=== PATIENT | male | born 1945 | race Caucasian/White ===

== ENCOUNTER 2020-10-01 07:51 | Day surgery (SDC) | payer MEDICARE ==
[2020-09-27 11:12] VITALS: BMI 31.1
[~2020-10-01 07:51] MED LIST: LACTATED RINGERS 1,000 ML IV SCH; LIDOCAINE 1% (10MG/ML) FOR IV START INTRADERMA PRN
[2020-10-01 08:09] VITALS: TEMP 97.8
[2020-10-01] MEDS ORDERED: LACTATED RINGERS 1,000 ML IV ONE (08:09)
[2020-10-01] MEDS ORDERED: fentaNYL (PF) 50 MCG/ML 2 ML AMP ONE (08:39)
[2020-10-01] MEDS ORDERED: MIDAZOLAM 2 MG/2 ML VIAL ONE (08:39)
[2020-10-01] MEDS ORDERED: PROPOFOL 10 MG/ML 20 ML VIAL IV ONE (08:39)
[2020-10-01 09:23] VITALS: RESP 16
--- NOTE | 2020-10-01 09:24 | P.PCN ---
Date of Procedure: 10/01/20 Description of Procedure: BRIEF HISTORY: Patient is a 75-year-old male presenting for outpatient colonoscopy prescription malignant neoplasm of the colon. No change in bowel habits, blood per rectum or family history of colon cancer. Last colonoscopy 10 years ago. PROCEDURE PERFORMED: Colonoscopy with polypectomy and biopsy. PREOPERATIVE DIAGNOSIS: Screening for malignant neoplasm of the colon, last colonoscopy 10 years ago. ESTIMATED BLOOD LOSS: Minimal. IV sedation per Anesthesia. PROCEDURE: After informed consent was obtained, the patient, was brought into the endoscopy unit. IV sedation was administered by Anesthesia under continuous monitoring. Digital rectal examination was normal. Initially the Olympus CF-190 flexible video colonoscope was then inserted in the rectum, gradually advanced into the cecum without any difficulty. Careful examination was performed as the scope was gradually being withdrawn. Ileocecal valve and the appendiceal orifice were visualized and appeared normal. Prep was excellent. Mucosa of the cecum, ascending colon, transverse colon, descending colon, sigmoid colon, and rectum appeared normal. Diminutive polyps measuring 1-2 mm in size removed from the cecum, splenic flexure and sigmoid colon using cold forcep polypectomy. There is a flat 2.5 cm tubulovillous-appearing polyp in the rectum located approximately 5 cm from the anal verge which was biopsied. Retroflexion was performed in the rectum and no lesions were seen, mild low-grade internal hemorrhoids and. The patient tolerated the procedure well. IMPRESSION: 3 diminutive polyps removed with cold forcep polypectomy from the cecum, splenic flexure and sigmoid. Large flat tubulovillous-appearing rectal polyp biopsied with cold forceps. Internal hemorrhoids. RECOMMENDATIONS: Findings of this examination were discussed with the patient in the family. Await pathology from biopsies and polypectomy. Patient will likely need referral to tertiary center for removal of the large rectal tubulovillous follow-up, pending pathology from biopsies.
[2020-10-01 09:33] VITALS: BP 129/86; PULSE 66
== END 2020-10-01 10:02 | disposition home or self-care (01) ==
LOC: ORWHC2ENDO 07:51
PROVIDERS: ATTEND Internal Medicine
DX: Z12.11 Encounter for screening for malignant neoplasm of colon (principal); D12.0 Benign neoplasm of cecum; D12.3 Benign neoplasm of transverse colon; D12.5 Benign neoplasm of sigmoid colon; D12.8 Benign neoplasm of rectum; K64.8 Other hemorrhoids; I10 Essential (primary) hypertension; M10.9 Gout, unspecified; Z79.899 Other long term (current) drug therapy; Z87.891 Personal history of nicotine dependence; Z98.890 Other specified postprocedural states
CPT/HCPCS: 45380; 88305; J2250; J3010; J2704; 45385

== ENCOUNTER → 2021-07-18 | Outpatient (CLI) | payer MEDICARE ==
--- NOTE | 2021-07-18 14:35 | US ---
EXAMINATION TYPE: US scrotum with doppler. Grayscale and color Doppler Duplex imaging performed of [place] scrotum. DATE OF EXAM: 07/18/2021 COMPARISON: NONE CLINICAL HISTORY: N50.89 - Other specified disorders of the male gen. Swollen left testicle for month s, no pain, no injury, no surgical history EXAM MEASUREMENTS: TESTICLES: Right Testicle: 4.8 x 3.0 x 2.3 cm Left Testicle: 4.7 x 2.9 x 2.7 cm *rete testis noticed bilaterally EPIDIDYMIS HEAD: Right Epididymis: 0.9 cm Left Epididymis: 0.9 cm, operable 2.0cm epididymal cyst noted incidentally Doppler performed to assess for testicular vascularity; bilateral color flow and vascular waveforms a re seen. Presence of hydroceles: yes, large left side, mild lateral right Presence of varicoceles: no Testicular echotexture is homogenous and symmetric. IMPRESSION: Hydroceles left greater than right.
== END | disposition home or self-care (01) ==
LOC: RADUSWWP 13:24
PROVIDERS: ATTEND Family Medicine
DX: N43.2 Other hydrocele (principal)
CPT/HCPCS: 76870; 93975

== ENCOUNTER 2023-02-10 07:33 | Emergency (ER) | payer MEDICARE ==
[2023-02-10 07:39] VITALS: TEMP 97.2
[2023-02-10] MEDS ORDERED: SODIUM CHLORIDE 0.9% 500 ML 500 ML IV STA (07:51)
[2023-02-10] MEDS ORDERED: ONDANSETRON 4 MG/2 ML VIAL IVP STA (07:51)
[2023-02-10] MEDS ORDERED: MORPHINE SULFATE 4 MG/ML SYRINGE IVP STA (07:52)
--- NOTE | 2023-02-10 07:53 | ED ---
Abdominal Pain HPI - General Chief Complaint: Abdominal Pain Stated Complaint: Pain in left side of abd Time Seen by Provider: 02/10/23 07:35 Source: patient Mode of arrival: ambulatory Limitations: no limitations - History of Present Illness Initial Comments: 77-year-old male with past medical history of hypertension and presents emergency department reporting sudden onset of the left lower quadrant abdominal pain. States that he woke up around 5:15 this morning. He was getting dressed when he had sudden onset of left-sided sharp, lower abdominal pain. No history of similar in the past. Denies any urinary complaints to include dysuria, hematuria or difficulty voiding. Denies any changes in his bowel habits to include diarrhea, constipation, black or bloody stools. No testicular pain or discharge. No testicular swelling. No history of similar pain in the past. Did not take anything for symptoms before coming into the emergency department. States the pain is severe enough that it is making him dizzy. He denies any fevers. No abdominal surgeries. No other alleviating, precipitating or modifying factors - Related Data Home Medications Medication Instructions Recorded Confirmed Losartan Potassium 50 mg PO QAM 09/27/20 09/27/20 allopurinoL [Zyloprim] 100 mg PO DAILY 09/27/20 09/27/20 diphenhydrAMINE [Benadryl] 25 mg PO QID PRN 09/27/20 09/27/20 Previous Rx's Medication Instructions Recorded Acetaminophen [Acetaminophen 8 hr] 650 mg PO Q8H #30 tab 02/10/23 Amoxic-Pot Clav 875-125Mg 1 tab PO Q12HR 1 Days #20 tab 02/10/23 [Augmentin 875-125] Ibuprofen [Motrin] 600 mg PO Q8HR PRN #30 tab 02/10/23 Allergies Allergy/AdvReac Type Severity Reaction Status Date / Time No Known Allergies Allergy Verified 02/10/23 07:37 Review of Systems ROS Statement: Those systems with pertinent positive or pertinent negative responses have been documented in the HPI. ROS Other: All systems not noted in ROS Statement are negative. Past Medical History Past Medical History: Hypertension, Skin Disorder Additional Past Medical History / Comment(s): gout, psoriasis History of Any Multi-Drug Resistant Organisms: None Reported Past Surgical History: Joint Replacement, Orthopedic Surgery Additional Past Surgical History / Comment(s): sugery on two fingers left hand,lt hip replaced Past Anesthesia/Blood Transfusion Reactions: No Reported Reaction Additional Past Anesthesia/Blood Transfusion Reaction / Comment(s): no hx blood transfusion Past Psychological History: No Psychological Hx Reported Smoking Status: Never smoker - Past Family History Mother Family Medical History: Cancer Father Family Medical History: Deep Vein Thrombosis (DVT) General Exam Limitations: no limitations General appearance: alert, in no apparent distress Head exam: Present: atraumatic, normocephalic, normal inspection Eye exam: Present: normal appearance, PERRL, EOMI. Absent: scleral icterus, conjunctival injection, periorbital swelling ENT exam: Present: normal exam, mucous membranes moist Neck exam: Present: normal inspection. Absent: tenderness, meningismus, lymphadenopathy Respiratory exam: Present: normal lung sounds bilaterally. Absent: respiratory distress, wheezes, rales, rhonchi, stridor Cardiovascular Exam: Present: regular rate, normal rhythm, normal heart sounds. Absent: systolic murmur, diastolic murmur, rubs, gallop, clicks GI/Abdominal exam: Present: soft, tenderness (Left lower quadrant), normal bowel sounds. Absent: distended, guarding, rebound, rigid Extremities exam: Present: normal inspection, full ROM, normal capillary refill. Absent: tenderness, pedal edema, joint swelling, calf tenderness Back exam: Present: normal inspection Neurological exam: Present: alert, oriented X3, CN II-XII intact Psychiatric exam: Present: normal affect, normal mood Skin exam: Present: warm, dry, intact, normal color. Absent: rash Course Vital Signs 02/10/23 02/10/23 02/10/23 07:37 08:00 11:08 Temperature 97.2 F L Pulse Rate 72 72 88 Respiratory 16 17 18 Rate Blood Pressure 123/74 128/84 107/58 O2 Sat by Pulse 94 L 96 98 Oximetry Medical Decision Making - Medical Decision Making Was pt. sent in by a medical professional or institution (, PA, POWER ENGINEER, urgent care, hospital, or long term...) When possible be specific @ -No Did you speak to anyone other than the patient for history (EMS, parent, family, police, friend...)? What history was obtained from this source @ -No Did you review nursing and triage notes (agree or disagree)? Why? @ -I reviewed and agree with nursing and triage notes Were old charts reviewed (outside hosp., previous admission, EMS record, old EKG, old radiological studies, urgent care reports/EKG's, long term records)? Report findings @ -No old charts were reviewed Differential Diagnosis (chest pain, altered mental status, abdominal pain women, abdominal pain men, vaginal bleeding, weakness, fever, dyspnea, syncope, headache, dizziness, GI bleed, back pain, seizure, CVA, palpatations, mental health, musculoskeletal)? @ -diverticulitis, colon mass, bowel obstruction, pneumoperitoneum EKG interpreted by me (3pts min.). @ -yes X-rays interpreted by me (1pt min.). @ -None done CT interpreted by me (1pt min.). @ -yes U/S interpreted by me (1pt. min.). @ -None done What testing was considered but not performed or refused? (CT, X-rays, U/S, labs)? Why? @ -None What meds were considered but not given or refused? Why? @ -None Did you discuss the management of the patient with other professionals (professionals i.e. , PA, POWER ENGINEER, lab, RT, psych nurse, socially responsible investment adviser, watch train inspector, teacher, assurance officer, case supervisor)? Give summary @ -No Was smoking cessation discussed for >3mins.? @ -No Was critical care preformed (if so, how long)? @ -No Were there social determinants of health that impacted care today? How? (Homelessness, low income, unemployed, alcoholism, drug addiction, transportation, low edu. Level, literacy, decrease access to med. care, halfway, rehab)? @ -No Was there de-escalation of care discussed even if they declined (Discuss DNR or withdrawal of care, Hospice)? DNR status @ -No What co-morbidities impacted this encounter? (DM, HTN, Smoking, COPD, CAD, Cancer, CVA, ARF, Chemo, Hep., AIDS, mental health diagnosis, sleep apnea, mor bid obesity)? @ -None Was patient admitted / discharged? Hospital course, mention meds given and route, prescriptions, significant lab abnormalities, going to OR and other pertinent info. @ -Arrival patient was placed in room 17. Thorough history and physical exam is performed. IV access established laboratory studies were conducted. Lactic acid is 2.1. CT abdomen and pelvis demonstrates mild uncomplicated diverticulitis. Patient given dose of Rocephin and Flagyl. Pain is controlled at this time. Will be discharged home on Augmentin. Instructed to take the medications as directed and follow-up with his doctor. He has any pain immediately Motrin and Tylenol. If his pain is uncontrolled, he needs to return to the emergency room. Patient was agreeable to this and was discharged home in stable condition Undiagnosed new problem with uncertain prognosis? @ -No Drug Therapy requiring intensive monitoring for toxicity (Heparin, Nitro, Insulin, Cardizem)? @ -No Were any procedures done? @ -No Diagnosis/symptom? @ -acute lle abd pain, acute diverticulitis Acute, or Chronic, or Acute on Chronic? @ -acute Uncomplicated (without systemic symptoms) or Complicated (systemic symptoms)? @ -complicated Side effects of treatment? @ -No Exacerbation, Progression, or Severe Exacerbation? @ -No Poses a threat to life or bodily function? How? (Chest pain, [place], GA, pneumonia, PE, COPD, DKA, ARF, appy, cholecystitis, CVA, Diverticulitis, Homicidal, Suicidal, threat to staff... and all critical care pts) @ -No - Lab Data Result diagrams: 02/10/23 07:53 02/10/23 07:53 Lab Results 02/10/23 02/10/23 02/10/23 Range/Units 07:53 07:53 07:53 WBC 6.1 (3.8-10.6) k/uL RBC 5.13 (4.30-5.90) m/uL Hgb 16.2 (13.0-17.5) gm/dL Hct 47.9 (39.0-53.0) % MCV 93.3 (80.0-100.0) fL MCH 31.5 (25.0-35.0) pg MCHC 33.8 (31.0-37.0) g/dL RDW 13.2 (11.5-15.5) % Plt Count 187 (150-450) k/uL MPV 7.6 Neutrophils % (Manual) 87 % Band Neuts % (Manual) 5 % Lymphocytes % (Manual) 4 % Monocytes % (Manual) 3 % Eosinophils % (Manual) 1 % Neutrophils # (Manual) 5.60 (1.3-7.7) k/uL Lymphocytes # (Manual) 0.24 L (1.0-4.8) k/uL Monocytes # (Manual) 0.18 (0-1.0) k/uL Eosinophils # (Manual) 0.06 (0-0.7) k/uL Nucleated RBCs 0 (0-0) /100 WBC Manual Slide Review Performed PT 11.1 (9.0-12.0) sec INR 1.1 (<1.2) APTT 21.7 L (22.0-30.0) sec Sodium 139 (137-145) mmol/L Potassium 5.1 (3.5-5.1) mmol/L Chloride 106 (98-107) mmol/L Carbon Dioxide 26 (22-30) mmol/L Anion Gap 7 mmol/L BUN 21 H (9-20) mg/dL Creatinine 1.13 (0.66-1.25) mg/dL Est GFR (CKD-EPI)AfAm 73 (>60 ml/min/1.73 sqM) Est GFR (CKD-EPI)NonAf 63 (>60 ml/min/1.73 sqM) Glucose 143 H (74-99) mg/dL Lactic Ac Sepsis Rflx Plasma Lactic Acid Eulalio (0.7-2.0) mmol/L Calcium 8.9 (8.4-10.2) mg/dL Total Bilirubin 1.1 (0.2-1.3) mg/dL AST 29 (17-59) U/L ALT 28 (4-49) U/L Alkaline Phosphatase 94 (38-126) U/L Total Protein 7.3 (6.3-8.2) g/dL Albumin 4.0 (3.5-5.0) g/dL Lipase 51 (23-300) U/L 02/10/23 02/10/23 Range/Units 07:53 08:34 WBC (3.8-10.6) k/uL RBC (4.30-5.90) m/uL Hgb (13.0-17.5) gm/dL Hct (39.0-53.0) % MCV (80.0-100.0) fL MCH (25.0-35.0) pg MCHC (31.0-37.0) g/dL RDW (11.5-15.5) % Plt Count (150-450) k/uL MPV Neutrophils % (Manual) % Band Neuts % (Manual) % Lymphocytes % (Manual) % Monocytes % (Manual) % Eosinophils % (Manual) % Neutrophils # (Manual) (1.3-7.7) k/uL Lymphocytes # (Manual) (1.0-4.8) k/uL Monocytes # (Manual) (0-1.0) k/uL Eosinophils # (Manual) (0-0.7) k/uL Nucleated RBCs (0-0) /100 WBC Manual Slide Review PT (9.0-12.0) sec INR (<1.2) APTT (22.0-30.0) sec Sodium (137-145) mmol/L Potassium (3.5-5.1) mmol/L Chloride (98-107) mmol/L Carbon Dioxide (22-30) mmol/L Anion Gap mmol/L BUN (9-20) mg/dL Creatinine (0.66-1.25) mg/dL Est GFR (CKD-EPI)AfAm (>60 ml/min/1.73 sqM) Est GFR (CKD-EPI)NonAf (>60 ml/min/1.73 sqM) Glucose (74-99) mg/dL Lactic Ac Sepsis Rflx Y Plasma Lactic Acid Eulalio 2.1 H* (0.7-2.0) mmol/L Calcium (8.4-10.2) mg/dL Total Bilirubin (0.2-1.3) mg/dL AST (17-59) U/L ALT (4-49) U/L Alkaline Phosphatase (38-126) U/L Total Protein (6.3-8.2) g/dL Albumin (3.5-5.0) g/dL Lipase (23-300) U/L - EKG Data EKG Comments: EKG demonstrates sinus rhythm at a rate of 68. SC interval 161. QRS is 80. QTC 356. No acute ST segment elevations or depressions Disposition Clinical Impression: Diverticulitis large intestine, LLQ pain Disposition: HOME SELF-CARE Condition: Stable Instructions (If sedation given, give patient instructions): Diverticulitis (ED) Additional Instructions: Alternate taking Motrin and Tylenol every 4 hours for fever control. Take the antibiotics as directed starting tomorrow. Follow-up with your primary care doctor in 2-4 days and return should her pain not improve Prescriptions: Acetaminophen [Acetaminophen 8 hr] 650 mg PO Q8H #30 tab Amoxic-Pot Clav 875-125Mg [Augmentin 875-125] 1 tab PO Q12HR 1 Days #20 tab Ibuprofen [Motrin] 600 mg PO Q8HR PRN #30 tab PRN Reason: Pain Is patient prescribed a controlled substance at d/c from ED?: No Referrals: Meng Traore MD [Primary Care Provider] - 1-2 days Time of Disposition: 10:29
[2023-02-10 08:13] LABS: HCT 47.9 % (39.0-53.0); HGB 16.2 gm/dL (13.0-17.5); MCH 31.5 pg (25.0-35.0); MCHC 33.8 g/dL (31.0-37.0); MCV 93.3 fL (80.0-100.0); Mean Platelet Volume 7.6; RBC 5.13 m/uL (4.30-5.90); RDW 13.2 % (11.5-15.5); WBC 6.1 k/uL (3.8-10.6)
[2023-02-10 08:27] LABS: INR 1.1 (<1.2); Prothrombin Time 11.1 sec (9.0-12.0)
[2023-02-10 08:33] LABS: Calcium 8.9 mg/dL (8.4-10.2); Potassium 5.1 mmol/L (3.5-5.1); Total Bilirubin 1.1 mg/dL (0.2-1.3); Total Protein 7.3 g/dL (6.3-8.2)
[2023-02-10 08:40] LABS: Partial Thromboplastin Time 21.7 sec (22.0-30.0)
[2023-02-10 09:18] LABS: Band Neutrophils % 5 %; Eosinophils # (M) 0.06 k/uL (0-0.7); Lymphocytes # (M) 0.24 k/uL (1.0-4.8); Monocytes # (M) 0.18 k/uL (0-1.0); Neutrophils % (M) 87 %; Nucleated Red Blood Cells 0 /100 WBC (0-0); Total Cells Counted 100
[2023-02-10 09:24] LABS: Platelet Count 187 k/uL (150-450)
--- NOTE | 2023-02-10 09:32 | CT ---
EXAMINATION TYPE: CT abdomen pelvis w con CT DLP: 1497.8 mGycm, Automated exposure control for dose reduction was used. DATE OF EXAM: 02/10/2023 7:52 AM COMPARISON: None CLINICAL INDICATION:Male, 77 years old with history of llq pain; LLQ Pain started this am TECHNIQUE: Axial CT of the abdomen and pelvis. Sagittal and coronal reformats were created on a [email or web address] workstation. Contrast used:100 ml mL of Isovue 300 with IV Contrast, Oral contrast used: without Oral Contrast FINDINGS: LOWER CHEST: Unremarkable ABDOMEN LIVER: Unremarkable GALLBLADDER AND BILE DUCTS: Unremarkable. PANCREAS: Unremarkable. SPLEEN: Unremarkable. ADRENAL GLANDS: Unremarkable. KIDNEYS AND URETERS: No evidence of hydronephrosis or renal calculus. The ureters are unremarkable. Left renal cyst. PELVIS BLADDER: Unremarkable REPRODUCTIVE: Trace right and small left hydrocele. ABDOMEN & PELVIS STOMACH AND BOWEL: There are colonic diverticula present, one of which has adjacent fat stranding saad nges. No organizing fluid collection or evidence of pneumoperitoneum. No evidence of bowel obstructio n. PERITONEUM/RETROPERITONEUM: No evidence of pneumoperitoneum or free fluid. VASCULATURE: No evidence of aortic aneurysm. MUSCULOSKELETAL: No acute osseous abnormalities, left hip arthroplasty changes with hardware intact. This limits evaluation the pelvis. Multilevel disc degeneration changes of the spine. LYMPH NODES: No gross evidence for lymphadenopathy. SOFT TISSUE/ABDOMINAL WALL: Fat-containing buccal hernia. IMPRESSION: Acute uncomplicated diverticulitis. No organizing fluid collection or free air. Colonoscopy after res olution of symptoms recommended if not recently performed.
[2023-02-10] MEDS ORDERED: cefTRIAXone IN SWFI 1,000 MG/10 ML SYRINGE IVP STA (10:24)
[2023-02-10] MEDS ORDERED: metroNIDAZOLE 500 MG TAB PO STA (10:25)
[2023-02-10 11:10] VITALS: BP 107/58; PULSE 88; RESP 18
== END 2023-02-10 11:10 | disposition home or self-care (01) ==
LOC: EC 07:33
DX: K57.32 Diverticulitis of large intestine without perforation or abscess without bleeding (principal); I10 Essential (primary) hypertension; M10.9 Gout, unspecified; Z79.899 Other long term (current) drug therapy
CPT/HCPCS: 36415; 93005; 80053; 83605; 83690; 85025; 85610; 85730; 74177; 99284; 96374; 96375 ×2; 96361; J2270; J2405; J0696; Q9967